=== PATIENT | male | born 1985 | race American Indian/Alaskan Native ===

== ENCOUNTER 2018-08-02 11:00 | Emergency (ER) | payer MEDICAID ==
--- NOTE | 2018-08-02 11:10 | Emergency Department Report ---
Blank Doc - Documentation Documentation: This is a 33-year-old male that presents with URI symptoms. This initial assessment/diagnostic orders/clinical plan/treatment(s) is/are subject to change based on patient's health status, clinical progression and re- assessment by fellow clinical providers in the ED. Further treatment and workup at subsequent clinical providers discretion. Patient/guardians urged not to elope from the ED as their condition may be serious if not clinically assessed and managed. Initial orders include: 1- Patient sent to [facility] for further evaluation and treatment 2- CXR
--- NOTE | 2018-08-02 11:36 | XRay Report ---
ROUTINE CHEST, TWO VIEWS: HISTORY: Cough. No comparison at this facility. The interstitium is prominent bilaterally. There appear to be early fibrotic changes in the peripheral lower lobes. No evidence for infiltrate, pleural effusion or pneumothorax. Normal heart and mediastinal structures. Normal bony thorax. IMPRESSION: Prominent interstitium. This appears to represent unspecified interstitial lung disease. Early idiopathic pulmonary fibrosis could be considered. Consider further evaluation with CT chest with high resolution protocol.
[2018-08-02] MEDS ORDERED: PROVENTIL IH ONE (11:44)
[2018-08-02] MEDS ORDERED: DELTASONE PO ONE (11:44)
--- NOTE | 2018-08-02 11:44 | Emergency Department Report ---
Minor Respiratory - HPI Chief Complaint: Upper Respiratory Infection Stated Complaint: URTI Time Seen by Provider: 08/02/18 11:09 Duration: 3 Days Pain Location: Chest Minor Respiratory: Yes Able to Tolerate Fluids, Yes Cough, Yes Shortness of Breath (NORMAL FOR HIM), No Rhinorrhea, No Sore Throat, No Ear Pain, No Sick Contacts, No Hemoptysis, No Chest Pain, No Fever Other History: Patient is a 33-year-old -Citizen Of [place] male who comes to the ER today stating that he has been on on antibiotics for 4 days and that he needs a shot. Patient has a history of lupus, interstitial lung disease, and pulmonary hypertension. He saw his primary care doctor 4 days ago and was placed on Bactrim. He reports that the primary care did not do lab work nor an x-ray: They had just listen to his lungs. Patient is followed by Dr. Nixon at [facility]. Patient denies taking his temperature at home but states that he has had some chills. He reports his for him to be green with blood streaks. He states that he always has blood streaked sputum from interstitial lung disease. PMH. SLE. END STAGE ILD-NO HOME O2. PHTN. RX. bactrim. prednisone. alma rosa. jojo c. zofran. kenalog. astelin. viagra. probiotic. milticlast. hydrochlorq. VSS no tachycardia, no hypotension, and no fever on arrival to ER. ED Review of Systems ROS: Stated complaint: LUPUS/NEUMONIA/WEAK Other details as noted in HPI Comment: All other systems reviewed and negative Constitutional: no symptoms reported, see HPI Eyes: denies: eye pain ENT: denies: ear pain, throat pain Respiratory: no symptoms reported, see HPI, cough, shortness of breath (BASELINE) Cardiovascular: as per HPI. denies: chest pain, palpitations Endocrine: denies: excessive sweating Gastrointestinal: denies: abdominal pain Genitourinary: denies: urgency Musculoskeletal: denies: back pain Skin: denies: as per HPI, lesions Neurological: denies: weakness Psychiatric: denies: as per HPI Hematological/Lymphatic: denies: easy bleeding ED Past Medical Hx - Past Medical History Previous Medical History?: Yes Additional medical history: Lupus. ILD. PULM HTN. ALLERGIES. ED - Surgical History Past Surgical History?: No - Social History Smoking Status: Never Smoker Substance Use Type: Marijuana - Medications Home Medications: Home Medications Medication Instructions Recorded Confirmed Last Taken Type Acetaminophen with Codeine 1 each PO Q6H PRN #12 tablet 08/08/18 Unknown Rx [Tylenol with Codeine #3 Tablet] Ibuprofen [Motrin] 600 mg PO Q8H PRN #20 tablet 08/08/18 Unknown Rx Minor Respiratory Exam - Exam General: Vital signs noted. No distress. Alert and acting appropriately. HEENT: Yes Moist Mucous Membranes, No Pharyngeal Erythema, No Pharyngeal Exudates, No Rhinorrhea, No Conjuctival Injection, No Frontal Tenderness, No Maxillary Tenderness Ear: Neither TM Bulge, Neither TM Erythema, Neither EAC Pain, Neither EAC Discharge Neck: Yes Supple, No Adenopathy Lungs: Yes Good Air Exchange, Yes Wheezes, No Ronchi, No Stridor, No Cough, No Labored Respirations, No Retractions, No Use of Accessory Muscles, No Other Abnormal Lung Sounds Heart: Yes Regular, No Murmur Abdomen: Yes Normal Bowel Sounds, No Tenderness, No Peritoneal Signs Skin: No Rash, No Edema Neurologic: Alert and oriented, no deficits. Musculoskeletal: Unremarkable. ED Course Vital Signs 08/02/18 08/02/18 11:10 11:33 Temperature 97.6 F Pulse Rate 100 H Respiratory 20 17 Rate Blood Pressure 143/97 O2 Sat by Pulse 96 Oximetry ED Medical Decision Making - Lab Data Result diagrams: 08/02/18 11:56 08/02/18 11:56 - Radiology Data Radiology results: report reviewed, image reviewed - Medical Decision Making Vital Signs (72 hours) 08/02/18 08/02/18 11:10 11:33 Temperature 97.6 F Pulse Rate 100 H Respiratory 20 17 Rate Blood Pressure 143/97 O2 Sat by Pulse 96 Oximetry Labs 08/02/18 08/02/18 11:56 11:56 WBC 8.5 RBC 4.81 Hgb 14.1 Hct 41.8 MCV 87 MCH 29 MCHC 34 RDW 13.7 Plt Count 302 Sodium 143 Potassium 3.3 L Chloride 103.7 Carbon Dioxide 27 Anion Gap 16 BUN 5 L Creatinine 0.8 Estimated GFR > 60 BUN/Creatinine Ratio 6 Glucose 94 Calcium 8.8 Total Bilirubin 0.50 AST 16 ALT 14 Alkaline Phosphatase 66 Total Protein 7.5 Albumin 4.1 Albumin/Globulin Ratio 1.2 NO FEVER NO CP NO SOB- OVER HIS USUAL WBC NORMAL KNOWN A/C LUNG DISEASE RELIABLE FOR FOLLOW UP oxygen saturation on walk test with provider 98% on room air. No SOB. 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 WILL DC HOME ON HIS CURRENT MEDS AND WITH A COPY OF HIS XRAY TO FOLLOW UP WITHIN [address] HIS PCP DR NIXON WITH. Critical care attestation.: If time is entered above; I have spent that time in minutes in the direct care of this critically ill patient, excluding procedure time. ED Disposition Clinical Impression: URTI (acute upper respiratory infection), ILD (interstitial lung disease) Disposition: DC-01 TO HOME OR SELFCARE Is pt being admited?: No Does the pt Need Aspirin: No Condition: Stable Instructions: Upper Respiratory Infection (ED) Additional Instructions: hydrate well with water meds per routine diet as tolerated activity as tolerated PLEASE FOLLOW UP WITH YOU PCP WITHIN 48 HOURS WBC IS NORMAL NO FEVER SHOW HER YOUR XRAY ROCEPHIN 1GM IM GIVEN Referrals: CHANDAN HESTER MD [Primary Care Provider] - 3-5 Days Time of Disposition: 13:07
[2018-08-02 12:24] LABS: Hematocrit 41.8 % (35.5-45.6); Hemoglobin 14.1 gm/dl (11.8-15.2); Mean Corpuscular HGB Conc 34 % (32-34); Mean Corpuscular Volume 87 fl (84-94); Platelet Count 302 K/mm3 (140-440); Red Blood Count 4.81 M/mm3 (3.65-5.03); Red Cell Distribution Width 13.7 % (13.2-15.2)
[2018-08-02 12:30] LABS: Alanine Aminotransferase 14 units/L (7-56); Albumin 4.1 g/dL (3.9-5); BUN/Creatinine Ratio 6; Blood Urea Nitrogen 5 mg/dL (9-20); Calcium 8.8 mg/dL (8.4-10.2); Hemolysis Index 2
[2018-08-02] MEDS ORDERED: XYLOCAINE 1% MPF 5 mL INFILTRATI ONE (13:06)
[2018-08-02] MEDS ORDERED: ROCEPHIN IM ONE (13:06)
[2018-08-02 14:18] VITALS: BP 132/88
== END 2018-08-02 14:18 | disposition home or self-care (01) ==
LOC: ED 11:00
DX: J06.9 Acute upper respiratory infection, unspecified (principal); J84.9 Interstitial pulmonary disease, unspecified; M32.9 Systemic lupus erythematosus, unspecified; I10 Essential (primary) hypertension
CPT/HCPCS: 36415; 71046; 80053; 85027; 94640; 96372; 99284; J0696; J7512

== ENCOUNTER 2018-08-08 12:47 | Emergency (ER) | payer MEDICAID ==
[2018-08-08 13:31] VITALS: BP 138/72
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
[2018-08-08] MEDS ORDERED: PERCOCET 5/325 PO STA (13:39)
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
== END 2018-08-08 17:04 | disposition home or self-care (01) ==
LOC: ED 12:47
DX: S80.02XA Contusion of left knee, initial encounter (principal); S20.212A Contusion of left front wall of thorax, initial encounter; S50.11XA Contusion of right forearm, initial encounter; Y08.89XA Assault by other specified means, initial encounter; Y93.89 Activity, other specified; Y92.89 Other specified places as the place of occurrence of the external cause; Y99.8 Other external cause status